=== PATIENT | female | born 1965 | race Caucasian/White ===

== ENCOUNTER 2017-05-01 14:24 | Emergency (ER) | payer OTHER ==
[~2017-05-01] VITALS: Ht 172.7 cm; Wt 90.0 kg
[2017-05-01 17:28] VITALS: BP 187/84
== END 2017-05-01 17:31 | disposition home or self-care (01) | DRG 556 ==
LOC: ED 14:24
DX: M79.671 Pain in right foot (principal); J45.909 Unspecified asthma, uncomplicated; K21.9 Gastro-esophageal reflux disease without esophagitis; W22.8XXA Striking against or struck by other objects, initial encounter